=== PATIENT | male | born 1970 | race African-American/Black ===

== ENCOUNTER 2023-10-24 23:27 | Emergency (ER) | payer OTHER ==
[2023-10-24 23:35] VITALS: PULSE 93; O2SAT 97
== END 2023-10-25 01:19 | disposition left against medical advice (07) ==
LOC: ER 23:58
DX: R10.9 Unspecified abdominal pain (principal); Z53.21 Procedure and treatment not carried out due to patient leaving prior to being seen by health care provider

== ENCOUNTER 2023-10-25 01:53 | Day surgery (SDC) | payer OTHER ==
[~2023-10-25] VITALS: Ht 188 cm; Wt 114.0 kg
[2023-10-25 02:08] VITALS: O2SAT 98
[2023-10-25 03:12] LABS: BASOPHILS % 0.4 % (0.0-2.0); HEMATOCRIT. 50.6 % (42.0-52.0); HEMOGLOBIN. 16.4 g/dL (14.0-18.0); LYMPHOCYTES % 7.7 % (20.0-50.0); MEAN CORPUSCULAR HEMOGLOBIN 29.2 pg (28.0-32.0); MEAN CORPUSCULAR HGB CONC 32.5 g/dL (31.0-37.0); MEAN CORPUSCULAR VOLUME 89.9 fL (80.0-94.0); MEAN PLATELET VOLUME 7.6 fl (7.4-10.4); MONOCYTES % 6.1 % (2.0-8.0); NEUTROPHILS % 85.8 % (40.0-76.0); PLATELET 271 x1000/uL (130-400); RED BLOOD CELL COUNT 5.63 mill/uL (4.7-6.1); RED CELL DISTRIBUTION WIDTH 15.3 % (11.6-14.6); WHITE BLOOD COUNT 12.1 x1000/uL (4.5-11.0)
[2023-10-25 03:18] LABS: CHLORIDE 106 mEq/L (98-107); POTASSIUM 4.3 mEq/L (3.5-5.1); SODIUM 136 mEq/L (136-145)
[2023-10-25 03:19] LABS: CALCIUM 9.9 mg/dL (8.7-10.4); CARBON DIOXIDE 21 mEq/L (21-32)
[2023-10-25 03:24] LABS: CREATININE 1.4 mg/dL (0.6-1.3); GLUCOSE 132 mg/dL (70-105); UREA NITROGEN BLOOD 10 mg/dL (9-23)
[2023-10-25 03:43] LABS: TROPONIN I HIGH SENSITIVITY < 4 ng/L (3.0-53)
[2023-10-25] MEDS: KETOROLAC 30MG/ML VIAL IV ONE (06:37)
[2023-10-25] MEDS ORDERED: METRONIDAZOLE 500 MG PREMIX 100 ML IV ONE (08:00)
[2023-10-25] MEDS ORDERED: LEVOFLOXACIN 750MG PREMIX 150 ML IV ONE (08:00)
[2023-10-25] MEDS ORDERED: BUPIVACAINE HCL/PF 0.5% (5MG/ML) 10ML ONE (10:01)
[2023-10-25] MEDS ORDERED: SKIN ADHESIVE 0.7 GM EA TOP ONE (10:01)
[2023-10-25 10:37] VITALS: TEMP 37.11408; O2SAT 99
[2023-10-25] MEDS ORDERED: ROCURONIUM BROMIDE 10MG/ML VIAL 5ML IV ONE (10:42)
[2023-10-25] MEDS ORDERED: CEFAZOLIN SODIUM 1000MG/VIAL ONE (10:42)
[2023-10-25] MEDS ORDERED: SUCCINYLCHOLINE CHLORIDE 200MG/10ML IV ONE (10:42)
[2023-10-25] MEDS ORDERED: PROPOFOL 200MG/20ML VIAL IV ONE (10:42)
[2023-10-25] MEDS ORDERED: FENTANYL CITRATE/PF 50MCG/ML 2ML VIAL ONE (10:43)
[2023-10-25] MEDS ORDERED: NEOSTIGMINE METHYLSULFATE 1MG/ML 10 ML VIAL ONE (10:44)
[2023-10-25] MEDS ORDERED: ONDANSETRON HCL 4MG/2ML INJ ONE (10:44)
[2023-10-25] MEDS ORDERED: DEXAMETHASONE 4MG/ML 1ML VIAL ONE (10:44)
[2023-10-25] MEDS ORDERED: GLYCOPYRROLATE 0.2 MG/ML 2ML VIAL ONE ×2 (10:44)
[2023-10-25] MEDS ORDERED: MIDAZOLAM HCL 2 MG/2 ML VIAL ONE (10:44)
[2023-10-25] MEDS ORDERED: LABETALOL 5MG/ML 4ML INJ IV PRN (11:00)
[2023-10-25] MEDS ORDERED: MEPERIDINE HCL/PF 25MG/ML CPJ IV PRN (11:00)
[2023-10-25] MEDS ORDERED: HYDROMORPHONE HCL/PF 2MG/ML INJ IV PRN (11:00)
[2023-10-25] MEDS: ONDANSETRON HCL 4MG/2ML INJ IV PRN (14:48)
[2023-10-25 14:49] VITALS: BP 148/97; PULSE 97; RESP 22
[2023-10-25] MEDS: HYDROMORPHONE HCL/PF 1MG/ML INJ IV PRN (14:49)
== END 2023-10-25 17:15 | disposition home or self-care (01) ==
LOC: ER 01:53 → EDBEDREQ 10:22 → EDBEDREQTM 10:22 → ER 10:38 → OR 11:55
PROVIDERS: ATTEND Surgery
DX: K36 Other appendicitis (principal); I10 Essential (primary) hypertension; Z79.899 Other long term (current) drug therapy; Z98.890 Other specified postprocedural states
CPT/HCPCS: 44970; 80048; 83690; 85025; 84484; 36415; 88304; 74176; 99285; 93005; J3010; J3490 ×3; J0690; J1100; J1885; J2250; J2405; J2704; J0330; J1170; J7030; J2710